=== PATIENT | male | born 1960 | race African-American/Black ===

== ENCOUNTER 2018-03-27 19:36 | Inpatient (IN) ==
[~2018-03-27 19:36] MED LIST: *HR* Midazolam HCl 2 MG/2 ML VIAL IV ONE; *HR* Succinylcholine 200 MG/10 ML VIAL IVP ONE
[2018-03-27] MEDS ORDERED: EPINEPHrine 1 MG/ML VIAL ONE ×2 (19:42→19:52)
[2018-03-27] MEDS ORDERED: EPINEPHrine 1 MG/ML VIAL IM ONE ×2 (19:53→20:42)
[2018-03-27] MEDS ORDERED: Racepinephrine Neb 0.5 ML VIAL IH ONE (19:58)
[2018-03-27] MEDS ORDERED: *HR* Ketamine 500 MG/5 ML MDV IVP ONE (20:25)
[2018-03-27] MEDS ORDERED: *HR* Succinylcholine 200 MG/10 ML VIAL IVP ONE ×2 (20:25→21:08)
[2018-03-27] MEDS ORDERED: *HR* Propofol 200 MG/20 ML VIAL IVP ONE ×2 (20:25→21:08)
[2018-03-27] MEDS ORDERED: 0.9 % Sodium Chloride 1,000 ML IVC ONE (20:45)
[2018-03-27] MEDS ORDERED: Ketamine *HR* 500 MG/10 ML MDV IVP ONE (20:45)
[2018-03-27] MEDS ORDERED: *HR* Midazolam HCl 2 MG/2 ML VIAL IVP ONE (21:20)
[2018-03-27] MEDS ORDERED: 0.9 % Sodium Chloride 1,000 ML ONE (21:31)
[2018-03-27] MEDS: FentaNYL (PF) 1,000 MCG in 0.9 % Sodium Chloride 80 ML IVC SCH (21:55)
[2018-03-27 21:59] LABS: Basophils % 0.2 %; Eosinophils # 0.1 K/mcL (0.0-0.6); Eosinophils % 0.6 %; Hematocrit 44.1 % (37.5-50.1); Hemoglobin 15.5 g/dL (12.9-16.9); Immature Granulocytes % 0.3 % (0-4); Lymphocytes # 1.4 K/mcL (0.6-4.6); Lymphocytes % 11.4 %; Mean Corpuscular HGB Conc 35.1 g/dL (31.6-35.5); Mean Corpuscular Hemoglobin 30.8 pg (28.0-33.3); Mean Corpuscular Volume 87.5 fL (83.0-100.0); Monocytes # 0.4 K/mcL (0.0-1.3); Monocytes % 3.6 %; Neutrophils # 10.2 K/mcL (1.6-8.9); Platelet Count 199 K/mcL (140-400); Red Blood Count 5.04 M/mcL (4.19-5.50); Red Cell Distribution Width 13.2 % (11.5-14.5); Segmented Neutrophils % 83.9 %; White Blood Count 12.2 K/mcL (4.3-11.1)
[2018-03-27] MEDS ORDERED: 0.9 % Sodium Chloride 1,000 ML IVC SCH (22:00)
[2018-03-27 22:04] LABS: INR 1.2; Prothrombin Time 13.1 Seconds (9.4-12.1)
[2018-03-27 22:18] LABS: BUN/Creatinine Ratio 18 (6-26); Blood Urea Nitrogen 14 mg/dL (6-20); Calcium 9.4 mg/dL (8.6-10.3); Carbon Dioxide 23 mEq/L (23-29); Chloride 108 mEq/L (98-107); Glucose 151 mg/dL (70-105); Osmolality,Calculated 291 (280-300); Potassium 3.3 mEq/L (3.5-5.1); Sodium 139 mEq/L (136-145); eGFR For African Americans > 60 (> 60); eGFR For Non-African Americans > 60 (> 60)
[2018-03-27] MEDS ORDERED: Famotidine 20 MG/2 ML VIAL IVP ONE (22:39)
[2018-03-27] MEDS ORDERED: Ondansetron 4 MG/2 ML VIAL IVP PRN (22:43)
[2018-03-27] MEDS ORDERED: Naloxone 0.4 MG/ML INJ IVP PRN (22:43)
[2018-03-27] MEDS ORDERED: Artificial Tears SOLN 15 ML BOTTLE BOTH EYES PRN (22:43)
[2018-03-27 23:10] LABS: Estimated Average Glucose 111 mg/dl
[2018-03-27 23:14] LABS: Magnesium 1.7 mg/dL (1.6-2.6)
[2018-03-27] MEDS: Ipratropium/Albuterol Neb 3 ML IH SCH (23:39)
[2018-03-28] MEDS ORDERED: 0.9 % Sodium Chloride 1,000 ML IVC SCH (00:09)
[2018-03-28] MEDS: Artificial Tears SOLN 15 ML BOTTLE BOTH EYES SCH ×6 (00:13→21:46)
[2018-03-28 00:31] LABS: ABG Base Excess 0 mEq/L (-2 to 3); ABG HCO3 25 mEq/L (21-27); ABG Oxygen Saturation 98 % (95-98); ABG PCO2 41 mmHg (35-45); ABG PH 7.39 pH Units (7.32-7.45); ABG PO2 99 mmHg (85-104); ABG TCO2 26 mEq/L (20-26); Blood Gas VT 550 cc
[2018-03-28] MEDS: Ipratropium/Albuterol Neb 3 ML IH SCH ×6 (03:35→23:58)
[2018-03-28 04:40] LABS: Basophils % 0.1 %; Hematocrit 41.9 % (37.5-50.1); Hemoglobin 14.6 g/dL (12.9-16.9); Immature Granulocytes % 0.2 % (0-4); Lymphocytes # 0.8 K/mcL (0.6-4.6); Mean Corpuscular HGB Conc 34.8 g/dL (31.6-35.5); Mean Corpuscular Hemoglobin 30.4 pg (28.0-33.3); Mean Corpuscular Volume 87.1 fL (83.0-100.0); Mean Platelet Volume 8.9 fL (9.4-12.4); Monocytes # 0.1 K/mcL (0.0-1.3); Monocytes % 0.6 %; Neutrophils # 7.5 K/mcL (1.6-8.9); Platelet Count 176 K/mcL (140-400); Red Blood Count 4.81 M/mcL (4.19-5.50); Red Cell Distribution Width 13.2 % (11.5-14.5); Segmented Neutrophils % 89.1 %; White Blood Count 8.4 K/mcL (4.3-11.1)
[2018-03-28] MEDS: FentaNYL (PF) 1,000 MCG in 0.9 % Sodium Chloride 80 ML IVC SCH ×3 (04:40→20:50)
[2018-03-28 05:01] LABS: BUN/Creatinine Ratio 16 (6-26); Blood Urea Nitrogen 11 mg/dL (6-20); Calcium 9.3 mg/dL (8.6-10.3); Carbon Dioxide 21 mEq/L (23-29); Chloride 108 mEq/L (98-107); Glucose 154 mg/dL (70-105); Magnesium 1.8 mg/dL (1.6-2.6); Osmolality,Calculated 288 (280-300); Phosphorous 2.4 mg/dL (2.7-4.5); Potassium 3.9 mEq/L (3.5-5.1); Sodium 138 mEq/L (136-145); eGFR For African Americans > 60 (> 60); eGFR For Non-African Americans > 60 (> 60)
[2018-03-28] MEDS: *HR* Heparin 5,000 UNIT/ML VIAL SQ SCH ×3 (06:02→21:46)
[2018-03-28] MEDS: Famotidine 20 MG/2 ML VIAL IVP SCH ×2 (06:02→17:53)
[2018-03-28] MEDS ORDERED: methylPREDNISolone 4 MG TABLET GTUBE SCH ×4 (08:00→17:00)
[2018-03-28] MEDS: Chlorhexidine Rinse 15 ML MOUTHWASH MM SCH ×2 (08:28→21:46)
[2018-03-28] MEDS: MethylPREDNISolone 40 MG/ML VIAL IVP SCH ×2 (08:56→17:53)
[2018-03-28] MEDS ORDERED: methylPREDNISolone 4 MG TABLET PO SCH (09:00)
[2018-03-28] MEDS: *HR* Metoprolol 5 MG/5 ML VIAL IVP PRN (11:51)
[2018-03-28] MEDS: Ringers Solution, Lactated 1,000 ML IVC SCH (14:02)
[2018-03-29] MEDS: Artificial Tears SOLN 15 ML BOTTLE BOTH EYES SCH ×7 (00:14→23:46)
[2018-03-29] MEDS: MethylPREDNISolone 40 MG/ML VIAL IVP SCH ×4 (00:14→23:45)
[2018-03-29] MEDS: Ringers Solution, Lactated 1,000 ML IVC SCH (02:35)
[2018-03-29] MEDS: Ipratropium/Albuterol Neb 3 ML IH SCH ×5 (03:56→20:18)
[2018-03-29] MEDS: FentaNYL (PF) 1,000 MCG in 0.9 % Sodium Chloride 80 ML IVC SCH ×3 (04:26→20:32)
[2018-03-29 04:31] LABS: Hemoglobin 13.7 g/dL (12.9-16.9); Immature Granulocytes % 0.5 % (0-4); Lymphocytes # 1.1 K/mcL (0.6-4.6); Lymphocytes % 9.3 %; Mean Corpuscular HGB Conc 34.3 g/dL (31.6-35.5); Mean Corpuscular Hemoglobin 29.7 pg (28.0-33.3); Mean Corpuscular Volume 86.8 fL (83.0-100.0); Mean Platelet Volume 8.9 fL (9.4-12.4); Monocytes # 0.6 K/mcL (0.0-1.3); Monocytes % 4.9 %; Neutrophils # 9.9 K/mcL (1.6-8.9); Platelet Count 180 K/mcL (140-400); Red Blood Count 4.61 M/mcL (4.19-5.50); Red Cell Distribution Width 13.8 % (11.5-14.5); Segmented Neutrophils % 85.3 %; White Blood Count 11.6 K/mcL (4.3-11.1)
[2018-03-29 04:54] LABS: BUN/Creatinine Ratio 12 (6-26); Blood Urea Nitrogen 8 mg/dL (6-20); Calcium 9.5 mg/dL (8.6-10.3); Carbon Dioxide 22 mEq/L (23-29); Chloride 111 mEq/L (98-107); Glucose 147 mg/dL (70-105); Magnesium 2.2 mg/dL (1.6-2.6); Osmolality,Calculated 295 (280-300); Phosphorous 2.2 mg/dL (2.7-4.5); Potassium 3.9 mEq/L (3.5-5.1); Sodium 142 mEq/L (136-145); eGFR For African Americans > 60 (> 60); eGFR For Non-African Americans > 60 (> 60)
[2018-03-29 05:11] LABS: ABG Base Excess -4 mEq/L (-2 to 3); ABG HCO3 21 mEq/L (21-27); ABG Oxygen Saturation 96 % (95-98); ABG PCO2 36 mmHg (35-45); ABG PH 7.37 pH Units (7.32-7.45); ABG PO2 87 mmHg (85-104); ABG TCO2 22 mEq/L (20-26); Blood Gas Modality PRVC; Blood Gas VT 550 cc
[2018-03-29] MEDS: Famotidine 20 MG/2 ML VIAL IVP SCH ×2 (06:00→17:05)
[2018-03-29] MEDS: *HR* Heparin 5,000 UNIT/ML VIAL SQ SCH ×3 (06:00→21:40)
[2018-03-29] MEDS ORDERED: methylPREDNISolone 4 MG TABLET GTUBE SCH ×2 (08:00→21:00)
[2018-03-29] MEDS: Aspirin 81 MG TAB.CHEW PO SCH (09:49)
[2018-03-29] MEDS: Chlorhexidine Rinse 15 ML MOUTHWASH MM SCH ×2 (09:50→21:39)
[2018-03-29] MEDS: Dexmedetomidine HCl 400 MCG/100 ML MLS IVC SCH (17:03)
[2018-03-29] MEDS: *HR* Metoprolol 5 MG/5 ML VIAL IVP PRN (17:05)
[2018-03-30] MEDS: Ipratropium/Albuterol Neb 3 ML IH SCH ×6 (00:20→20:05)
[2018-03-30] MEDS: FentaNYL (PF) 1,000 MCG in 0.9 % Sodium Chloride 80 ML IVC SCH ×5 (02:35→21:38)
[2018-03-30] MEDS: Artificial Tears SOLN 15 ML BOTTLE BOTH EYES SCH ×5 (04:00→21:37)
[2018-03-30 04:40] LABS: Basophils % 0.1 %; Hematocrit 41.1 % (37.5-50.1); Hemoglobin 13.8 g/dL (12.9-16.9); Immature Granulocytes % 0.5 % (0-4); Lymphocytes # 0.9 K/mcL (0.6-4.6); Lymphocytes % 6.3 %; Mean Corpuscular HGB Conc 33.6 g/dL (31.6-35.5); Mean Corpuscular Hemoglobin 29.7 pg (28.0-33.3); Mean Corpuscular Volume 88.4 fL (83.0-100.0); Mean Platelet Volume 8.8 fL (9.4-12.4); Monocytes # 1.2 K/mcL (0.0-1.3); Monocytes % 8.2 %; Neutrophils # 12.6 K/mcL (1.6-8.9); Platelet Count 164 K/mcL (140-400); Red Blood Count 4.65 M/mcL (4.19-5.50); Red Cell Distribution Width 14.4 % (11.5-14.5); Segmented Neutrophils % 84.9 %; White Blood Count 14.8 K/mcL (4.3-11.1)
[2018-03-30 04:58] LABS: Magnesium 2.6 mg/dL (1.6-2.6); Phosphorous 2.5 mg/dL (2.7-4.5)
[2018-03-30 05:00] LABS: ABG Base Excess 3 mEq/L (-2 to 3); ABG HCO3 28 mEq/L (21-27); ABG Oxygen Saturation 95 % (95-98); ABG PCO2 44 mmHg (35-45); ABG PH 7.41 pH Units (7.32-7.45); ABG PO2 75 mmHg (85-104); ABG TCO2 29 mEq/L (20-26); Blood Gas Modality ASSIST CONTROL; Blood Gas VT 550 cc
[2018-03-30] MEDS: *HR* Heparin 5,000 UNIT/ML VIAL SQ SCH ×3 (05:52→21:38)
[2018-03-30] MEDS: Famotidine 20 MG/2 ML VIAL IVP SCH ×2 (05:52→18:26)
[2018-03-30] MEDS ORDERED: Furosemide 40 MG/4 ML VIAL IVP ONE (06:58)
[2018-03-30] MEDS: Chlorhexidine Rinse 15 ML MOUTHWASH MM SCH ×2 (08:03→21:37)
[2018-03-30] MEDS: Aspirin 81 MG TAB.CHEW PO SCH (08:03)
[2018-03-30] MEDS: Dexmedetomidine HCl 400 MCG/100 ML MLS IVC SCH (08:03)
[2018-03-30 08:40] LABS: BUN/Creatinine Ratio 19 (6-26); Blood Urea Nitrogen 12 mg/dL (6-20); Calcium 9.5 mg/dL (8.6-10.3); Carbon Dioxide 26 mEq/L (23-29); Chloride 110 mEq/L (98-107); Glucose 133 mg/dL (70-105); Osmolality,Calculated 298 (280-300); Potassium 3.9 mEq/L (3.5-5.1); Sodium 143 mEq/L (136-145); eGFR For African Americans > 60 (> 60); eGFR For Non-African Americans > 60 (> 60)
[2018-03-30] MEDS ORDERED: methylPREDNISolone 4 MG TABLET GTUBE SCH (21:00)
[2018-03-31] MEDS: Ipratropium/Albuterol Neb 3 ML IH SCH ×6 (00:13→20:08)
[2018-03-31] MEDS: Artificial Tears SOLN 15 ML BOTTLE BOTH EYES SCH ×7 (00:22→23:44)
[2018-03-31] MEDS: Dexmedetomidine HCl 400 MCG/100 ML MLS IVC SCH ×2 (00:23→19:41)
[2018-03-31 04:13] LABS: Basophils % 0.1 %; Eosinophils % 0.2 %; Hematocrit 41.7 % (37.5-50.1); Hemoglobin 13.7 g/dL (12.9-16.9); Immature Granulocytes % 0.4 % (0-4); Lymphocytes # 2.6 K/mcL (0.6-4.6); Lymphocytes % 21.6 %; Mean Corpuscular HGB Conc 32.9 g/dL (31.6-35.5); Mean Corpuscular Hemoglobin 29.9 pg (28.0-33.3); Mean Platelet Volume 8.7 fL (9.4-12.4); Monocytes # 1.1 K/mcL (0.0-1.3); Monocytes % 8.7 %; Neutrophils # 8.5 K/mcL (1.6-8.9); Platelet Count 157 K/mcL (140-400); Red Blood Count 4.58 M/mcL (4.19-5.50); Red Cell Distribution Width 14.6 % (11.5-14.5); White Blood Count 12.2 K/mcL (4.3-11.1)
[2018-03-31 04:23] LABS: BUN/Creatinine Ratio 24 (6-26); Blood Urea Nitrogen 18 mg/dL (6-20); Calcium 8.8 mg/dL (8.6-10.3); Carbon Dioxide 28 mEq/L (23-29); Chloride 111 mEq/L (98-107); Glucose 152 mg/dL (70-105); Magnesium 2.4 mg/dL (1.6-2.6); Osmolality,Calculated 301 (280-300); Phosphorous 2.8 mg/dL (2.7-4.5); Potassium 3.3 mEq/L (3.5-5.1); Sodium 143 mEq/L (136-145); eGFR For African Americans > 60 (> 60); eGFR For Non-African Americans > 60 (> 60)
[2018-03-31 05:43] LABS: ABG Base Excess 7 mEq/L (-2 to 3); ABG HCO3 32 mEq/L (21-27); ABG Oxygen Saturation 96 % (95-98); ABG PCO2 47 mmHg (35-45); ABG PH 7.45 pH Units (7.32-7.45); ABG PO2 77 mmHg (85-104); ABG TCO2 34 mEq/L (20-26); Blood Gas Modality ASSIST CONTROL; Blood Gas VT 550 cc
[2018-03-31] MEDS: FentaNYL (PF) 1,000 MCG in 0.9 % Sodium Chloride 80 ML IVC SCH (06:13)
[2018-03-31] MEDS: Famotidine 20 MG/2 ML VIAL IVP SCH ×2 (06:14→16:31)
[2018-03-31] MEDS: *HR* Heparin 5,000 UNIT/ML VIAL SQ SCH ×3 (06:14→20:40)
[2018-03-31] MEDS: Chlorhexidine Rinse 15 ML MOUTHWASH MM SCH ×2 (07:35→20:33)
[2018-03-31] MEDS: Aspirin 81 MG TAB.CHEW PO SCH (07:35)
[2018-03-31] MEDS ORDERED: *HR* Dextrose 50 % in Water (Syg) 50 ML SYRINGE IVP PRN (10:53)
[2018-03-31] MEDS ORDERED: Dextrose Gel 15 GM/37.5 ML TUBE PO PRN ×2 (10:53)
[2018-03-31] MEDS ORDERED: D5% in Water 1,000 ML IVC PRN (10:53)
[2018-03-31] MEDS: Insulin LISPRO 300 UNITS/3 ML VIAL SQ SCH ×2 (11:56→16:32)
[2018-03-31] MEDS: Docusate Oral Soln 100 MG/10 ML UDC GTUBE SCH ×2 (12:43→20:34)
[2018-03-31] MEDS: hydroCHLOROthiazide 25 MG TABLET GTUBE SCH (12:43)
[2018-03-31 15:04] LABS: Shrimp IgE 1.56 kU/L (<=0.34)
[2018-03-31 16:02] LABS: Basophils % 0.1 %; Eosinophils # 0.1 K/mcL (0.0-0.6); Eosinophils % 0.5 %; Hematocrit 38.6 % (37.5-50.1); Hemoglobin 12.6 g/dL (12.9-16.9); Immature Granulocytes % 0.2 % (0-4); Lymphocytes # 2.5 K/mcL (0.6-4.6); Lymphocytes % 26.3 %; Mean Corpuscular HGB Conc 32.6 g/dL (31.6-35.5); Mean Corpuscular Hemoglobin 29.6 pg (28.0-33.3); Mean Corpuscular Volume 90.8 fL (83.0-100.0); Mean Platelet Volume 9.1 fL (9.4-12.4); Monocytes % 10.4 %; Neutrophils # 5.9 K/mcL (1.6-8.9); Platelet Count 154 K/mcL (140-400); Red Blood Count 4.25 M/mcL (4.19-5.50); Red Cell Distribution Width 14.8 % (11.5-14.5); Segmented Neutrophils % 62.5 %; White Blood Count 9.5 K/mcL (4.3-11.1)
[2018-03-31 16:02] LABS: VBG Ionized Calcium 1.15 mmol/L (1.15-1.35)
[2018-03-31 16:22] LABS: BUN/Creatinine Ratio 31 (6-26); Blood Urea Nitrogen 22 mg/dL (6-20); Calcium 8.6 mg/dL (8.6-10.3); Carbon Dioxide 28 mEq/L (23-29); Chloride 109 mEq/L (98-107); Glucose 103 mg/dL (70-105); Osmolality,Calculated 298 (280-300); Potassium 3.2 mEq/L (3.5-5.1); Sodium 142 mEq/L (136-145); eGFR For African Americans > 60 (> 60); eGFR For Non-African Americans > 60 (> 60)
[2018-03-31 16:30] LABS: Magnesium 2.3 mg/dL (1.6-2.6); Phosphorous 3.7 mg/dL (2.7-4.5)
[2018-03-31] MEDS: MethylPREDNISolone 40 MG/ML VIAL IVP SCH ×2 (16:31→23:42)
[2018-03-31] MEDS ORDERED: Potassium Chloride Elixir 20 MEQ/15 ML UDC GTUBE PRN (17:00)
[2018-04-01] MEDS: Ipratropium/Albuterol Neb 3 ML IH SCH ×7 (00:02→23:37)
[2018-04-01] MEDS: Insulin LISPRO 300 UNITS/3 ML VIAL SQ SCH ×5 (00:18→23:42)
[2018-04-01] MEDS: FentaNYL (PF) 1,000 MCG in 0.9 % Sodium Chloride 80 ML IVC SCH ×2 (02:04→21:42)
[2018-04-01 05:09] LABS: BUN/Creatinine Ratio 28 (6-26); Blood Urea Nitrogen 19 mg/dL (6-20); Calcium 8.6 mg/dL (8.6-10.3); Carbon Dioxide 24 mEq/L (23-29); Chloride 108 mEq/L (98-107); Glucose 135 mg/dL (70-105); Magnesium 2.5 mg/dL (1.6-2.6); Osmolality,Calculated 296 (280-300); Phosphorous 5.2 mg/dL (2.7-4.5); Sodium 141 mEq/L (136-145); eGFR For African Americans > 60 (> 60); eGFR For Non-African Americans > 60 (> 60)
[2018-04-01] MEDS: Artificial Tears SOLN 15 ML BOTTLE BOTH EYES SCH ×6 (05:34→23:39)
[2018-04-01] MEDS ORDERED: Scopolamine Patch 1.5 MG PATCH.TD72 TD SCH (06:00)
[2018-04-01 06:22] LABS: ABG Base Excess 4 mEq/L (-2 to 3); ABG HCO3 29 mEq/L (21-27); ABG Oxygen Saturation 98 % (95-98); ABG PCO2 43 mmHg (35-45); ABG PH 7.44 pH Units (7.32-7.45); ABG PO2 99 mmHg (85-104); ABG TCO2 30 mEq/L (20-26); Blood Gas Modality ASSIST CONTROL; Blood Gas VT 550 cc
[2018-04-01] MEDS: *HR* Heparin 5,000 UNIT/ML VIAL SQ SCH ×3 (06:29→21:30)
[2018-04-01] MEDS: Famotidine 20 MG/2 ML VIAL IVP SCH ×2 (06:30→16:05)
[2018-04-01] MEDS ORDERED: *HR* LORazepam 2 MG/ML VIAL IVP ONE (07:02)
[2018-04-01] MEDS ORDERED: methylPREDNISolone 4 MG TABLET GTUBE SCH (08:00)
[2018-04-01] MEDS: Chlorhexidine Rinse 15 ML MOUTHWASH MM SCH ×2 (08:33→21:30)
[2018-04-01] MEDS: Docusate Oral Soln 100 MG/10 ML UDC GTUBE SCH ×2 (08:33→21:30)
[2018-04-01] MEDS: MethylPREDNISolone 40 MG/ML VIAL IVP SCH (08:33)
[2018-04-01] MEDS: Aspirin 81 MG TAB.CHEW PO SCH (08:34)
[2018-04-01] MEDS: amLODIPine 5 MG TABLET GTUBE SCH (08:34)
[2018-04-01] MEDS: hydroCHLOROthiazide 25 MG TABLET GTUBE SCH (08:34)
[2018-04-01] MEDS: Dexmedetomidine HCl 400 MCG/100 ML MLS IVC SCH ×3 (08:37→21:41)
[2018-04-01] MEDS ORDERED: Furosemide 40 MG/4 ML VIAL IVP ONE (11:11)
[2018-04-01] MEDS ORDERED: MethylPREDNISolone 40 MG/ML VIAL IVP ONE (18:00)
[2018-04-01] MEDS: Loratadine 10 MG TABLET PO SCH (21:30)
[2018-04-02] MEDS: *HR* Metoprolol 5 MG/5 ML VIAL IVP PRN (01:29)
[2018-04-02] MEDS: Ipratropium/Albuterol Neb 3 ML IH SCH ×6 (03:19→23:53)
[2018-04-02] MEDS: Dexmedetomidine HCl 400 MCG/100 ML MLS IVC SCH (03:36)
[2018-04-02] MEDS: Artificial Tears SOLN 15 ML BOTTLE BOTH EYES SCH ×6 (04:29→23:23)
[2018-04-02 04:47] LABS: Basophils % 0.1 %; Hematocrit 42.9 % (37.5-50.1); Immature Granulocytes % 0.4 % (0-4); Lymphocytes # 1.2 K/mcL (0.6-4.6); Mean Corpuscular HGB Conc 33.6 g/dL (31.6-35.5); Mean Corpuscular Hemoglobin 29.8 pg (28.0-33.3); Mean Corpuscular Volume 88.8 fL (83.0-100.0); Mean Platelet Volume 9.1 fL (9.4-12.4); Monocytes # 1.8 K/mcL (0.0-1.3); Monocytes % 11.7 %; Neutrophils # 12.2 K/mcL (1.6-8.9); Platelet Count 230 K/mcL (140-400); Red Blood Count 4.83 M/mcL (4.19-5.50); Red Cell Distribution Width 13.5 % (11.5-14.5); Segmented Neutrophils % 79.8 %
[2018-04-02 04:50] LABS: Hemoglobin 14.4 g/dL (12.9-16.9); White Blood Count 15.3 K/mcL (4.3-11.1)
[2018-04-02 05:46] LABS: ABG Base Excess 6 mEq/L (-2 to 3); ABG HCO3 32 mEq/L (21-27); ABG Oxygen Saturation 100 % (95-98); ABG PCO2 49 mmHg (35-45); ABG PH 7.43 pH Units (7.32-7.45); ABG PO2 550 mmHg (85-104); ABG TCO2 34 mEq/L (20-26); Blood Gas Modality ASSIST CONTROL; Blood Gas VT 550 cc
[2018-04-02 06:35] LABS: BUN/Creatinine Ratio 41 (6-26); Blood Urea Nitrogen 28 mg/dL (6-20); Calcium 9.7 mg/dL (8.6-10.3); Carbon Dioxide 26 mEq/L (23-29); Chloride 102 mEq/L (98-107); Glucose 145 mg/dL (70-105); Magnesium 2.6 mg/dL (1.6-2.6); Osmolality,Calculated 294 (280-300); Phosphorous 3.5 mg/dL (2.7-4.5); Sodium 138 mEq/L (136-145); eGFR For African Americans > 60 (> 60); eGFR For Non-African Americans > 60 (> 60)
[2018-04-02] MEDS: *HR* Heparin 5,000 UNIT/ML VIAL SQ SCH ×3 (06:45→21:50)
[2018-04-02] MEDS: Famotidine 20 MG/2 ML VIAL IVP SCH ×2 (06:46→17:08)
[2018-04-02] MEDS: FentaNYL (PF) 1,000 MCG in 0.9 % Sodium Chloride 80 ML IVC SCH (06:49)
[2018-04-02] MEDS: Insulin LISPRO 300 UNITS/3 ML VIAL SQ SCH ×3 (06:54→18:34)
[2018-04-02] MEDS: Docusate Oral Soln 100 MG/10 ML UDC GTUBE SCH ×3 (07:58→20:39)
[2018-04-02] MEDS: hydroCHLOROthiazide 25 MG TABLET GTUBE SCH (07:58)
[2018-04-02] MEDS: Loratadine 10 MG TABLET PO SCH ×2 (07:58→20:30)
[2018-04-02] MEDS: Chlorhexidine Rinse 15 ML MOUTHWASH MM SCH ×2 (07:58→20:30)
[2018-04-02] MEDS: Aspirin 81 MG TAB.CHEW PO SCH (07:58)
[2018-04-02] MEDS: amLODIPine 5 MG TABLET GTUBE SCH (07:59)
[2018-04-02] MEDS: *HR* LORazepam 2 MG/ML VIAL IVP PRN (08:03)
[2018-04-02] MEDS ORDERED: predniSONE 20 MG TABLET PO SCH (09:00)
[2018-04-02] MEDS ORDERED: Furosemide 40 MG/4 ML VIAL IVP ONE (17:05)
[2018-04-02 18:14] LABS: BUN/Creatinine Ratio 36 (6-26); Blood Urea Nitrogen 24 mg/dL (6-20); Calcium 9.6 mg/dL (8.6-10.3); Carbon Dioxide 30 mEq/L (23-29); Chloride 99 mEq/L (98-107); Glucose 129 mg/dL (70-105); Osmolality,Calculated 286 (280-300); Sodium 135 mEq/L (136-145); eGFR For African Americans > 60 (> 60); eGFR For Non-African Americans > 60 (> 60)
[2018-04-03] MEDS: Insulin LISPRO 300 UNITS/3 ML VIAL SQ SCH ×2 (01:06→06:14)
[2018-04-03] MEDS: Artificial Tears SOLN 15 ML BOTTLE BOTH EYES SCH (03:29)
[2018-04-03] MEDS: Ipratropium/Albuterol Neb 3 ML IH SCH ×6 (03:42→23:46)
[2018-04-03 03:54] LABS: Basophils % 0.1 %; Eosinophils % 0.1 %; Hemoglobin 15.4 g/dL (12.9-16.9); Immature Granulocytes % 0.6 % (0-4); Lymphocytes % 16.4 %; Mean Corpuscular HGB Conc 32.8 g/dL (31.6-35.5); Mean Corpuscular Hemoglobin 29.3 pg (28.0-33.3); Mean Corpuscular Volume 89.5 fL (83.0-100.0); Monocytes # 2.4 K/mcL (0.0-1.3); Monocytes % 13.5 %; Neutrophils # 12.6 K/mcL (1.6-8.9); Platelet Count 229 K/mcL (140-400); Red Blood Count 5.25 M/mcL (4.19-5.50); Red Cell Distribution Width 13.4 % (11.5-14.5); Segmented Neutrophils % 69.3 %; White Blood Count 18.1 K/mcL (4.3-11.1)
[2018-04-03 04:06] LABS: BUN/Creatinine Ratio 38 (6-26); Blood Urea Nitrogen 28 mg/dL (6-20); Carbon Dioxide 32 mEq/L (23-29); Chloride 95 mEq/L (98-107); Glucose 112 mg/dL (70-105); Osmolality,Calculated 286 (280-300); Potassium 3.4 mEq/L (3.5-5.1); Sodium 135 mEq/L (136-145); eGFR For African Americans > 60 (> 60); eGFR For Non-African Americans > 60 (> 60)
[2018-04-03] MEDS: *HR* LORazepam 2 MG/ML VIAL IVP PRN (04:46)
[2018-04-03] MEDS: *HR* Heparin 5,000 UNIT/ML VIAL SQ SCH ×3 (06:14→21:29)
[2018-04-03] MEDS: Famotidine 20 MG/2 ML VIAL IVP SCH ×2 (06:14→18:11)
[2018-04-03 07:35] LABS: Magnesium 2.5 mg/dL (1.6-2.6); Phosphorous 3.5 mg/dL (2.7-4.5)
[2018-04-03] MEDS ORDERED: Docusate Oral Soln 100 MG/10 ML UDC PO SCH (08:28)
[2018-04-03] MEDS ORDERED: Potassium Chloride Elixir 20 MEQ/15 ML UDC PO PRN (08:28)
[2018-04-03] MEDS ORDERED: amLODIPine 5 MG TABLET PO SCH (08:30)
[2018-04-03] MEDS ORDERED: hydroCHLOROthiazide 25 MG TABLET PO SCH (08:30)
[2018-04-03] MEDS ORDERED: *HR* LORazepam 2 MG/ML VIAL IVP PRN (08:36)
[2018-04-03] MEDS ORDERED: Ondansetron 4 MG/2 ML VIAL IVP PRN (08:36)
[2018-04-03] MEDS ORDERED: *HR* Dextrose 50 % in Water (Syg) 50 ML SYRINGE IVP PRN (08:36)
[2018-04-03] MEDS ORDERED: Dextrose Gel 15 GM/37.5 ML TUBE PO PRN ×2 (08:36)
[2018-04-03] MEDS ORDERED: D5% in Water 1,000 ML IVC PRN (08:36)
[2018-04-03] MEDS ORDERED: predniSONE 20 MG TABLET PO SCH ×2 (09:00)
[2018-04-03] MEDS: Loratadine 10 MG TABLET PO SCH ×2 (09:49→21:29)
[2018-04-03] MEDS: Docusate Oral Soln 100 MG/10 ML UDC PO SCH ×2 (09:49→21:29)
[2018-04-03] MEDS: Aspirin 81 MG TAB.CHEW PO SCH (09:49)
[2018-04-03] MEDS: amLODIPine 5 MG TABLET PO SCH (09:50)
[2018-04-03] MEDS: hydroCHLOROthiazide 25 MG TABLET PO SCH (09:50)
[2018-04-03] MEDS ORDERED: Ampicillin/Sulbactam 1,500 MG in 0.9 % Sodium Chloride Mini Bag 100 ML IVPB SCH (12:00)
[2018-04-03] MEDS ORDERED: Insulin LISPRO 300 UNITS/3 ML VIAL SQ SCH (12:00)
[2018-04-03] MEDS: Ampicillin/Sulbactam 1,500 MG in 0.9 % Sodium Chloride Mini Bag 100 ML IVPB SCH ×2 (13:47→18:10)
[2018-04-04] MEDS: Ampicillin/Sulbactam 1,500 MG in 0.9 % Sodium Chloride Mini Bag 100 ML IVPB SCH ×4 (00:21→17:57)
[2018-04-04] MEDS: Ipratropium/Albuterol Neb 3 ML IH SCH ×3 (03:47→11:37)
[2018-04-04] MEDS: Scopolamine Patch 1.5 MG PATCH.TD72 TD SCH (06:22)
[2018-04-04] MEDS: *HR* Heparin 5,000 UNIT/ML VIAL SQ SCH ×4 (06:26→21:10)
[2018-04-04] MEDS: Famotidine 20 MG/2 ML VIAL IVP SCH ×3 (06:26→18:03)
[2018-04-04] MEDS ORDERED: Potassium Chloride Elixir 20 MEQ/15 ML UDC PO PRN (08:19)
[2018-04-04] MEDS ORDERED: predniSONE 20 MG TABLET PO ONE (09:00)
[2018-04-04 09:55] LABS: Basophils % 0.3 %; Eosinophils # 0.1 K/mcL (0.0-0.6); Hematocrit 47.3 % (37.5-50.1); Hemoglobin 15.7 g/dL (12.9-16.9); Immature Granulocytes % 0.8 % (0-4); Lymphocytes # 2.8 K/mcL (0.6-4.6); Lymphocytes % 23.4 %; Mean Corpuscular HGB Conc 33.2 g/dL (31.6-35.5); Mean Corpuscular Hemoglobin 29.7 pg (28.0-33.3); Mean Corpuscular Volume 89.4 fL (83.0-100.0); Mean Platelet Volume 8.6 fL (9.4-12.4); Monocytes % 17.1 %; Neutrophils # 6.8 K/mcL (1.6-8.9); Platelet Count 220 K/mcL (140-400); Red Blood Count 5.29 M/mcL (4.19-5.50); Red Cell Distribution Width 13.1 % (11.5-14.5); Segmented Neutrophils % 57.4 %; White Blood Count 11.9 K/mcL (4.3-11.1)
[2018-04-04 10:17] LABS: BUN/Creatinine Ratio 36 (6-26); Blood Urea Nitrogen 27 mg/dL (6-20); Calcium 9.8 mg/dL (8.6-10.3); Carbon Dioxide 33 mEq/L (23-29); Chloride 95 mEq/L (98-107); Glucose 112 mg/dL (70-105); Osmolality,Calculated 290 (280-300); Potassium 3.8 mEq/L (3.5-5.1); Sodium 137 mEq/L (136-145); eGFR For African Americans > 60 (> 60); eGFR For Non-African Americans > 60 (> 60)
[2018-04-04] MEDS ORDERED: Ipratropium/Albuterol Neb 3 ML IH PRN (11:40)
[2018-04-04] MEDS: Docusate Oral Soln 100 MG/10 ML UDC PO SCH ×2 (13:03→21:08)
[2018-04-04] MEDS: hydroCHLOROthiazide 25 MG TABLET PO SCH (13:03)
[2018-04-04] MEDS: amLODIPine 5 MG TABLET PO SCH (13:03)
[2018-04-04] MEDS: Loratadine 10 MG TABLET PO SCH ×2 (13:03→21:08)
[2018-04-04] MEDS: Aspirin 81 MG TAB.CHEW PO SCH (13:04)
[2018-04-04] MEDS: Nystatin SUSP 5 ML UD.LIQ PO SCH ×3 (13:20→21:08)
[2018-04-05] MEDS: Ampicillin/Sulbactam 1,500 MG in 0.9 % Sodium Chloride Mini Bag 100 ML IVPB SCH ×4 (00:37→17:32)
[2018-04-05 05:27] LABS: Basophils % 0.3 %; Eosinophils # 0.1 K/mcL (0.0-0.6); Eosinophils % 0.6 %; Hemoglobin 16.2 g/dL (12.9-16.9); Immature Granulocytes % 1.4 % (0-4); Lymphocytes % 16.9 %; Mean Corpuscular HGB Conc 32.4 g/dL (31.6-35.5); Mean Corpuscular Hemoglobin 29.2 pg (28.0-33.3); Mean Corpuscular Volume 90.3 fL (83.0-100.0); Mean Platelet Volume 10.5 fL (9.4-12.4); Monocytes # 1.8 K/mcL (0.0-1.3); Monocytes % 15.4 %; Platelet Count 205 K/mcL (140-400); Red Blood Count 5.54 M/mcL (4.19-5.50); Segmented Neutrophils % 65.4 %; White Blood Count 11.5 K/mcL (4.3-11.1)
[2018-04-05 05:40] LABS: Lymphocytes # 1.9 K/mcL (0.6-4.6); Neutrophils # 7.5 K/mcL (1.6-8.9)
[2018-04-05 05:53] LABS: BUN/Creatinine Ratio 50 (6-26); Blood Urea Nitrogen 29 mg/dL (6-20); Calcium 9.7 mg/dL (8.6-10.3); Carbon Dioxide 29 mEq/L (23-29); Chloride 99 mEq/L (98-107); Glucose 129 mg/dL (70-105); Osmolality,Calculated 294 (280-300); Potassium 3.9 mEq/L (3.5-5.1); Sodium 138 mEq/L (136-145); eGFR For African Americans > 60 (> 60); eGFR For Non-African Americans > 60 (> 60)
[2018-04-05] MEDS: *HR* Heparin 5,000 UNIT/ML VIAL SQ SCH ×3 (06:00→21:49)
[2018-04-05] MEDS: Famotidine 20 MG/2 ML VIAL IVP SCH ×2 (06:00→17:27)
[2018-04-05] MEDS: amLODIPine 5 MG TABLET PO SCH (08:59)
[2018-04-05] MEDS: hydroCHLOROthiazide 25 MG TABLET PO SCH (08:59)
[2018-04-05] MEDS: Loratadine 10 MG TABLET PO SCH ×2 (09:00→21:49)
[2018-04-05] MEDS: Nystatin SUSP 5 ML UD.LIQ PO SCH ×4 (09:00→21:49)
[2018-04-05] MEDS: Docusate Oral Soln 100 MG/10 ML UDC PO SCH ×2 (09:00→21:49)
[2018-04-05] MEDS: Aspirin 81 MG TAB.CHEW PO SCH (09:00)
[2018-04-06] MEDS: Ampicillin/Sulbactam 1,500 MG in 0.9 % Sodium Chloride Mini Bag 100 ML IVPB SCH ×4 (00:49→17:42)
[2018-04-06] MEDS: Famotidine 20 MG/2 ML VIAL IVP SCH ×2 (06:23→17:42)
[2018-04-06] MEDS: *HR* Heparin 5,000 UNIT/ML VIAL SQ SCH ×3 (06:23→20:29)
[2018-04-06] MEDS: hydroCHLOROthiazide 25 MG TABLET PO SCH (09:38)
[2018-04-06] MEDS: amLODIPine 5 MG TABLET PO SCH (09:38)
[2018-04-06] MEDS: Nystatin SUSP 5 ML UD.LIQ PO SCH ×4 (09:38→20:29)
[2018-04-06] MEDS: Loratadine 10 MG TABLET PO SCH ×2 (09:39→20:28)
[2018-04-06] MEDS: Aspirin 81 MG TAB.CHEW PO SCH (09:39)
[2018-04-06] MEDS: Docusate Oral Soln 100 MG/10 ML UDC PO SCH ×2 (09:39→20:19)
[2018-04-07] MEDS: Famotidine 20 MG/2 ML VIAL IVP SCH (05:28)
[2018-04-07] MEDS: *HR* Enoxaparin 40 MG/0.4 ML SYRINGE SQ SCH (05:28)
[2018-04-07] MEDS: Scopolamine Patch 1.5 MG PATCH.TD72 TD SCH (05:29)
[2018-04-07] MEDS: Aspirin 81 MG TAB.CHEW PO SCH (09:06)
[2018-04-07] MEDS: amLODIPine 5 MG TABLET PO SCH (09:07)
[2018-04-07] MEDS: Loratadine 10 MG TABLET PO SCH ×2 (09:07→20:23)
[2018-04-07] MEDS: Nystatin SUSP 5 ML UD.LIQ PO SCH ×4 (09:07→20:26)
[2018-04-07] MEDS: Docusate Oral Soln 100 MG/10 ML UDC PO SCH ×2 (09:08→20:29)
[2018-04-07] MEDS: hydroCHLOROthiazide 25 MG TABLET PO SCH (09:08)
[2018-04-07] MEDS: Famotidine 20 MG TABLET PO SCH (20:29)
[2018-04-08] MEDS: *HR* Enoxaparin 40 MG/0.4 ML SYRINGE SQ SCH (04:23)
[2018-04-08 07:45] LABS: Basophils # 0.1 K/mcL (0.0-0.2); Basophils % 0.4 %; Eosinophils # 0.1 K/mcL (0.0-0.6); Eosinophils % 0.9 %; Hematocrit 46.9 % (37.5-50.1); Hemoglobin 15.8 g/dL (12.9-16.9); Immature Granulocytes % 1.7 % (0-4); Lymphocytes % 22.7 %; Mean Corpuscular HGB Conc 33.7 g/dL (31.6-35.5); Mean Corpuscular Hemoglobin 29.5 pg (28.0-33.3); Mean Corpuscular Volume 87.5 fL (83.0-100.0); Mean Platelet Volume 10.2 fL (9.4-12.4); Monocytes # 1.5 K/mcL (0.0-1.3); Red Blood Count 5.36 M/mcL (4.19-5.50); Red Cell Distribution Width 12.7 % (11.5-14.5); Segmented Neutrophils % 63.3 %; White Blood Count 13.2 K/mcL (4.3-11.1)
[2018-04-08 08:13] LABS: BUN/Creatinine Ratio 38 (6-26); Blood Urea Nitrogen 21 mg/dL (6-20); Calcium 9.8 mg/dL (8.6-10.3); Carbon Dioxide 26 mEq/L (23-29); Chloride 96 mEq/L (98-107); Glucose 133 mg/dL (70-105); Osmolality,Calculated 279 (280-300); Potassium 3.4 mEq/L (3.5-5.1); Sodium 132 mEq/L (136-145); eGFR For African Americans > 60 (> 60); eGFR For Non-African Americans > 60 (> 60)
[2018-04-08] MEDS: hydroCHLOROthiazide 25 MG TABLET PO SCH (08:13)
[2018-04-08] MEDS: amLODIPine 5 MG TABLET PO SCH (08:13)
[2018-04-08] MEDS: Aspirin 81 MG TAB.CHEW PO SCH (08:14)
[2018-04-08] MEDS: Loratadine 10 MG TABLET PO SCH ×2 (08:14→19:52)
[2018-04-08] MEDS: Docusate Oral Soln 100 MG/10 ML UDC PO SCH ×2 (08:14→19:52)
[2018-04-08] MEDS: Famotidine 20 MG TABLET PO SCH ×2 (08:15→19:52)
[2018-04-08] MEDS: Nystatin SUSP 5 ML UD.LIQ PO SCH ×4 (08:15→19:52)
[2018-04-08 11:08] LABS: Neutrophils # 8.4 K/mcL (1.6-8.9)
[2018-04-08 11:13] LABS: Platelet Count 190 K/mcL (140-400)
[2018-04-08] MEDS: predniSONE 20 MG TABLET PO SCH (17:51)
[2018-04-09] MEDS: *HR* Enoxaparin 40 MG/0.4 ML SYRINGE SQ SCH (05:23)
[2018-04-09] MEDS: amLODIPine 5 MG TABLET PO SCH (08:31)
[2018-04-09] MEDS: predniSONE 20 MG TABLET PO SCH (08:31)
[2018-04-09] MEDS: hydroCHLOROthiazide 25 MG TABLET PO SCH (08:32)
[2018-04-09] MEDS: Nystatin SUSP 5 ML UD.LIQ PO SCH ×4 (08:33→19:56)
[2018-04-09] MEDS: Loratadine 10 MG TABLET PO SCH ×2 (08:33→19:55)
[2018-04-09] MEDS: Docusate Oral Soln 100 MG/10 ML UDC PO SCH ×2 (08:33→19:55)
[2018-04-09] MEDS: Aspirin 81 MG TAB.CHEW PO SCH (08:33)
[2018-04-09] MEDS: Famotidine 20 MG TABLET PO SCH ×2 (08:34→19:56)
[2018-04-10] MEDS: Scopolamine Patch 1.5 MG PATCH.TD72 TD SCH (05:23)
[2018-04-10] MEDS: *HR* Enoxaparin 40 MG/0.4 ML SYRINGE SQ SCH (05:24)
[2018-04-10] MEDS: Aspirin 81 MG TAB.CHEW PO SCH (09:07)
[2018-04-10] MEDS: hydroCHLOROthiazide 25 MG TABLET PO SCH (09:08)
[2018-04-10] MEDS: amLODIPine 5 MG TABLET PO SCH (09:09)
[2018-04-10] MEDS: predniSONE 20 MG TABLET PO SCH (09:10)
[2018-04-10] MEDS: Docusate Oral Soln 100 MG/10 ML UDC PO SCH (09:12)
[2018-04-10] MEDS: Loratadine 10 MG TABLET PO SCH (09:12)
[2018-04-10] MEDS: Nystatin SUSP 5 ML UD.LIQ PO SCH ×3 (09:13→17:29)
[2018-04-10] MEDS: Famotidine 20 MG TABLET PO SCH (09:13)
[2018-04-10 11:15] VITALS: BP 113/74
== END 2018-04-10 17:31 ==
LOC: EMEROOARM 19:36 → ICNU 22:55 → SUATTDRO 22:55 → ICNU 23:39 → 2NENU 04-04 16:44
PROVIDERS: ADMIT Pediatrics; ATTEND Internal Medicine